=== PATIENT | male | born 1995 | race American Indian/Alaskan Native ===

== ENCOUNTER 2019-03-30 11:49 | Observation (INO) | payer OTHER ==
--- NOTE | 2019-03-30 12:12 | Emergency Department Report ---
ED Neuro Deficit HPI - General Chief Complaint: Neuro Symptoms/Deficit Stated Complaint: SYNCOPAL EPISODE Time Seen by Provider: 03/30/19 12:10 Source: patient, EMS Mode of arrival: Stretcher Limitations: Physical Limitation - History of Present Illness Initial Comments: This is a 23-year-old morbidly obese man who has presented to this hospital 2016 with similar symptoms. He is here with his family. They were at synagogue. He apparently suffered a syncopal episode while he was sitting in a chair. He remained in the chair with assistance but not responding to others for 3-4 minutes. It is reported that his breathing was normal while he had the above episode. There was no shaking movements. Last known well time was 11:30. He does have a history of seizure on Keppra. He was diagnosed as having complex migraine versus conversion disorder for similar symptoms in 2016: Hospital course: Patient is a 20 years old morbidly obese -[place] male with history of childhood seizures seizure disorder who presented to the hospital complaining of severe headache associated with left-sided weakness. He had a CT head on admiss ion with no acute findings. Brain MRI/A unable to be obtained due to patient's weight. After [address] head was obtained and CVA was ruled out. Differential diagnosis complex migraine versus conversion disorder. Patient was started on migraine medications and his discharged with home PT. Advised to follow-up also with psychiatry. Disposition: DC/TX HOME UNDER HOME HEALTH Time spent for discharge: 35 min - Discharge Diagnoses (1) Headache Status: Acute Qualifiers: Headache type: unspecified Headache chronicity pattern: acute headache Intractability: intractable Qualifier Code: (R51) Headache (2) Neurosensory deficit Status: Acute (3) Seizure disorder Status: Acute (4) Morbid obesity Status: Chronic Patient states that he does not recall the episode. I spoke to the tele- neurologist and ready. He told the tele-neurologist that he doesn't remember anything about 2016. In fact, he does not recall being transported to the emergency department per conversation with the tele-neurologist. He was speaking in a very low voice. He kept his eyes closed during my encounter mostly. He had apparently poor effort on NIH stroke score testing. He was found to have a left hemiparesis. Patient stated that he had chest pain since yesterday which he describes as dull and intermittent. He states that he had a headache since "1 minute before"I came in the room. The headache was essentially global. Patient's mother thinks this episode is related to a nerve block that he had near his left elbow for pain in his left hand or wrist. I do not know if she's been diagnosed with RSD or some sort of peripheral neuropathy. She also states that he may have some swelling in his left axillary area. She was relatively unconvinced that this episode is not likely related as the patient has now left leg weakness as well. She is also resisting the idea that this may be a similar episode compared with 2016. Reviewing the medical records, it does look remarkably similar. I have now discussed the case with the tele-neurologist twice. She recommends aspirin and admission for serial CT. She does not recommend TPA. Patient has a prior similar episode, current headache, chest pain and an alternate diagnosis which is much more likely than stroke. Therefore, TPA is not indicated. -: Sudden Location: left arm, left leg Presenting Symptoms: Present: Weak/Paralyzed One Side History of same: Yes Place: other ([facility]) Severity: severe Quality: weak Improves With: none Worsens With: none On Anticoagulants: No Context: sudden onset Associated Symptoms: chest pain - Related Data Home Medications: Previous Rx's Medication Instructions Recorded Last Taken Type Butalb/Acetamin/Caff 50-325-40 2 tab PO Q4H PRN #30 tablet 07/06/15 Unknown Rx [Fioricet 50-325-40] levETIRAcetam [Keppra TAB] 500 mg PO BID #60 tablet 07/06/15 Unknown Rx Allergies/Adverse Reactions: Allergies Allergy/AdvReac Type Severity Reaction Status Date / Time No Known Allergies Allergy Unverified 07/01/15 12:34 ED Review of Systems ROS: Stated complaint: SYNCOPAL EPISODE Other details as noted in HPI Constitutional: denies: chills, fever Eyes: denies: eye pain, eye discharge, vision change ENT: denies: ear pain, throat pain Respiratory: denies: cough, shortness of breath, wheezing Cardiovascular: chest pain. denies: palpitations Endocrine: no symptoms reported Gastrointestinal: denies: abdominal pain, nausea, diarrhea Genitourinary: denies: urgency, dysuria Musculoskeletal: denies: back pain, joint swelling, arthralgia Skin: denies: rash, lesions Neurological: headache. denies: weakness, paresthesias Psychiatric: denies: anxiety, depression Hematological/Lymphatic: denies: easy bleeding, easy bruising ED Past Medical Hx - Past Medical History Hx Headaches / Migraines: Yes Hx Seizures: Yes (couple years ago) - Social History Smoking Status: Never Smoker Substance Use Type: None - Medications Home Medications: Home Medications Medication Instructions Recorded Confirmed Last Taken Type Butalb/Acetamin/Caff 50-325-40 2 tab PO Q4H PRN #30 tablet 07/06/15 Unknown Rx [Fioricet 50-325-40] levETIRAcetam [Keppra TAB] 500 mg PO BID #60 tablet 07/06/15 Unknown Rx ED Neuro Physical Exam - General Limitations: Physical Limitation General appearance: lethargic (keeping eyes closed), obese (morbidly) Suspected Stroke: Yes (very unlikely) - Head Head exam: Present: atraumatic, normocephalic - Eye Eye exam: Present: normal appearance, PERRL, EOMI. Absent: scleral icterus - ENT ENT exam: Present: mucous membranes moist - Neck Neck exam: Present: normal inspection. Absent: tenderness, meningismus - Respiratory Respiratory exam: Present: normal lung sounds bilaterally. Absent: respiratory distress - Cardiovascular Cardiovascular Exam: Present: regular rate, normal rhythm. Absent: systolic murmur, diastolic murmur, rubs, gallop - GI/Abdominal GI/Abdominal exam: Present: soft, normal bowel sounds. Absent: distended, tenderness, guarding, rebound - Rectal Rectal exam: Present: deferred - Extremities Exam Extremities exam: Present: normal inspection - Back Exam Back exam: Present: normal inspection - Neurological Exam Neurological exam: Present: alert, oriented X3, CN II-XII intact, motor sensory deficit - NIHSS Assessment Interval: Baseline 1a. Level of Consciousness: arousable/minor stimuli 1b. LOC Questions: answers both correctly 1c. LOC Commands: performs tasks correctly 2. Best Gaze: normal 3. Visual: no visual loss 4. Facial Palsy: normal symmetrical movement 5b. Motor Arm Right: no drift 5a. Motor Arm Left: no gravity effort 6a. Motor Leg Left: no gravity effort 6b. Motor Leg Right: no drift 7. Limb Ataxia: absent 8. Sensory: normal 9. Best Language: no aphasia 10. Dysarthria: normal 11. Extinction/Inattention: no abnormality Total Score: 7 Stroke Severity: Moderate Stroke - Psychiatric Psychiatric exam: Present: normal mood, flat affect - Skin Skin exam: Present: warm, dry, intact, normal color. Absent: rash ED Course Vital Signs 03/30/19 03/30/19 03/30/19 11:59 13:00 13:14 Temperature 97.6 F Pulse Rate 96 H 74 Respiratory 18 18 Rate Blood Pressure 174/105 Blood Pressure 140/80 [Left] O2 Sat by Pulse 99 100 100 Oximetry - Reevaluation(s) Reevaluation #1: Patient with slightly more movements of his upper and lower extremity. There is seems to be an effort dependent component. He will be admitted to the hospital for further care and evaluation. He will be given aspirin as per the neurologist recommendation and admitted. 03/30/19 14:03 - Lab Data Result diagrams: 03/30/19 13:34 03/30/19 13:34 Lab Results 03/30/19 03/30/19 03/30/19 Range/Units 13:34 13:34 13:34 WBC 10.3 (4.5-11.0) K/mm3 RBC 5.20 H (3.65-5.03) M/mm3 Hgb 14.5 (11.8-15.2) gm/dl Hct 42.4 (35.5-45.6) % MCV 82 L (84-94) fl MCH 28 (28-32) pg MCHC 34 (32-34) % RDW 14.6 (13.2-15.2) % Plt Count 357 (140-440) K/mm3 Lymph % (Auto) 15.5 (13.4-35.0) % Fleming % (Auto) 8.4 H (0.0-7.3) % Eos % (Auto) 1.1 (0.0-4.3) % Baso % (Auto) 1.1 (0.0-1.8) % Lymph # 1.6 (1.2-5.4) K/mm3 Fleming # 0.9 H (0.0-0.8) K/mm3 Eos # 0.1 (0.0-0.4) K/mm3 Baso # 0.1 (0.0-0.1) K/mm3 Seg Neutrophils % 73.9 H (40.0-70.0) % Seg Neutrophils # 7.6 (1.8-7.7) K/mm3 PT 13.6 (12.2-14.9) Sec. INR 1.03 (0.87-1.13) APTT 29.1 (24.2-36.6) Sec. Thrombin Time 16.2 (15.1-19.6) Sec. D-Dimer 347.84 H (0-234) ng/mlDDU Total Bilirubin (0.1-1.2) mg/dL Direct Bilirubin (0-0.2) mg/dL AST (5-40) units/L ALT (7-56) units/L Alkaline Phosphatase (35-129) units/L Total Creatine Kinase 366 H (55-170) units/L CK-MB (CK-2) 2.7 (0.0-4.0) ng/mL CK-MB (CK-2) Rel Index 0.7 (0-4) Troponin T < 0.010 (0.00-0.029) ng/mL NT-Pro-B Natriuret Pep (0-450) pg/mL Total Protein (6.3-8.2) g/dL Albumin (3.9-5) g/dL Albumin/Globulin Ratio % Urine Color (Yellow) Urine Turbidity (Clear) Urine pH (5.0-7.0) Ur Specific Balm (1.003-1.030) Urine Protein (Negative) mg/dL Urine Glucose (UA) (Negative) mg/dL Urine Ketones (Negative) mg/dL Urine Blood (Negative) Urine Nitrite (Negative) Urine Bilirubin (Negative) Urine Urobilinogen (<2.0) mg/dL Ur Leukocyte Esterase (Negative) Urine WBC (Auto) (0.0-6.0) /HPF Urine RBC (Auto) (0.0-6.0) /HPF U Epithel Cells (Auto) (0-13.0) /HPF Urine Mucus /HPF Urine Opiates Screen Urine Methadone Screen Ur Barbiturates Screen Ur Phencyclidine Scrn Ur Amphetamines Screen U Benzodiazepines Scrn Urine Cocaine Screen U Marijuana (THC) Screen Drugs of Abuse Note 03/30/19 03/30/19 03/30/19 Range/Units 13:34 13:40 13:40 WBC (4.5-11.0) K/mm3 RBC (3.65-5.03) M/mm3 Hgb (11.8-15.2) gm/dl Hct (35.5-45.6) % MCV (84-94) fl MCH (28-32) pg MCHC (32-34) % RDW (13.2-15.2) % Plt Count (140-440) K/mm3 Lymph % (Auto) (13.4-35.0) % Fleming % (Auto) (0.0-7.3) % Eos % (Auto) (0.0-4.3) % Baso % (Auto) (0.0-1.8) % Lymph # (1.2-5.4) K/mm3 Fleming # (0.0-0.8) K/mm3 Eos # (0.0-0.4) K/mm3 Baso # (0.0-0.1) K/mm3 Seg Neutrophils % (40.0-70.0) % Seg Neutrophils # (1.8-7.7) K/mm3 PT (12.2-14.9) Sec. INR (0.87-1.13) APTT (24.2-36.6) Sec. Thrombin Time (15.1-19.6) Sec. D-Dimer (0-234) ng/mlDDU Total Bilirubin 0.50 (0.1-1.2) mg/dL Direct Bilirubin < 0.2 (0-0.2) mg/dL AST 20 (5-40) units/L ALT 30 (7-56) units/L Alkaline Phosphatase 79 (35-129) units/L Total Creatine Kinase (55-170) units/L CK-MB (CK-2) (0.0-4.0) ng/mL CK-MB (CK-2) Rel Index (0-4) Troponin T (0.00-0.029) ng/mL NT-Pro-B Natriuret Pep 26.88 (0-450) pg/mL Total Protein 7.7 (6.3-8.2) g/dL Albumin 3.6 L (3.9-5) g/dL Albumin/Globulin Ratio 0.9 % Urine Color Yellow (Yellow) Urine Turbidity Clear (Clear) Urine pH 8.0 H (5.0-7.0) Ur Specific Balm 1.011 (1.003-1.030) Urine Protein <15 mg/dl (Negative) mg/dL Urine Glucose (UA) Neg (Negative) mg/dL Urine Ketones Neg (Negative) mg/dL Urine Blood Neg (Negative) Urine Nitrite Neg (Negative) Urine Bilirubin Neg (Negative) Urine Urobilinogen < 2.0 (<2.0) mg/dL Ur Leukocyte Esterase Neg (Negative) Urine WBC (Auto) 1.0 (0.0-6.0) /HPF Urine RBC (Auto) 0.0 (0.0-6.0) /HPF U Epithel Cells (Auto) < 1.0 (0-13.0) /HPF Urine Mucus Few /HPF Urine Opiates Screen Presumptive negative Urine Methadone Screen Presumptive negative Ur Barbiturates Screen Presumptive negative Ur Phencyclidine Scrn Presumptive negative Ur Amphetamines Screen Presumptive negative U Benzodiazepines Scrn Presumptive negative Urine Cocaine Screen Presumptive negative U Marijuana (THC) Screen Presumptive negative Drugs of Abuse Note Disclamer Laboratory Results - last 24 hr 03/30/19 03/30/19 03/30/19 13:34 13:34 13:34 WBC 10.3 RBC 5.20 H Hgb 14.5 Hct 42.4 MCV 82 L MCH 28 MCHC 34 RDW 14.6 Plt Count 357 Lymph % (Auto) 15.5 Fleming % (Auto) 8.4 H Eos % (Auto) 1.1 Baso % (Auto) 1.1 Lymph # 1.6 Fleming # 0.9 H Eos # 0.1 Baso # 0.1 Seg Neutrophils % 73.9 H Seg Neutrophils # 7.6 PT 13.6 INR 1.03 APTT 29.1 Thrombin Time 16.2 D-Dimer 347.84 H Total Bilirubin Direct Bilirubin AST ALT Alkaline Phosphatase Total Creatine Kinase 366 H CK-MB (CK-2) 2.7 CK-MB (CK-2) Rel Index 0.7 Troponin T < 0.010 NT-Pro-B Natriuret Pep Total Protein Albumin Albumin/Globulin Ratio Urine Color Urine Turbidity Urine pH Ur Specific Balm Urine Protein Urine Glucose (UA) Urine Ketones Urine Blood Urine Nitrite Urine Bilirubin Urine Urobilinogen Ur Leukocyte Esterase Urine WBC (Auto) Urine RBC (Auto) U Epithel Cells (Auto) Urine Mucus Urine Opiates Screen Urine Methadone Screen Ur Barbiturates Screen Ur Phencyclidine Scrn Ur Amphetamines Screen U Benzodiazepines Scrn Urine Cocaine Screen U Marijuana (THC) Screen Drugs of Abuse Note 03/30/19 03/30/19 03/30/19 13:34 13:40 13:40 WBC RBC Hgb Hct MCV MCH MCHC RDW Plt Count Lymph % (Auto) Fleming % (Auto) Eos % (Auto) Baso % (Auto) Lymph # Fleming # Eos # Baso # Seg Neutrophils % Seg Neutrophils # PT INR APTT Thrombin Time D-Dimer Total Bilirubin 0.50 Direct Bilirubin < 0.2 AST 20 ALT 30 Alkaline Phosphatase 79 Total Creatine Kinase CK-MB (CK-2) CK-MB (CK-2) Rel Index Troponin T NT-Pro-B Natriuret Pep 26.88 Total Protein 7.7 Albumin 3.6 L Albumin/Globulin Ratio 0.9 Urine Color Yellow Urine Turbidity Clear Urine pH 8.0 H Ur Specific Balm 1.011 Urine Protein <15 mg/dl Urine Glucose (UA) Neg Urine Ketones Neg Urine Blood Neg Urine Nitrite Neg Urine Bilirubin Neg Urine Urobilinogen < 2.0 Ur Leukocyte Esterase Neg Urine WBC (Auto) 1.0 Urine RBC (Auto) 0.0 U Epithel Cells (Auto) < 1.0 Urine Mucus Few Urine Opiates Screen Presumptive negative Urine Methadone Screen Presumptive negative Ur Barbiturates Screen Presumptive negative Ur Phencyclidine Scrn Presumptive negative Ur Amphetamines Screen Presumptive negative U Benzodiazepines Scrn Presumptive negative Urine Cocaine Screen Presumptive negative U Marijuana (THC) Screen Presumptive negative Drugs of Abuse Note Disclamer - EKG Data -: EKG Interpreted by Ak EKG shows normal: sinus rhythm, axis, intervals, QRS complexes, ST-T waves Interpretation: nonspecific ST-T wave magdalena - Radiology Data Radiology results: image reviewed CT head no abnormal findings, discussed with radiologist. Chest x-ray normal mediastinum and no acute findings. Critical Care Time: Yes Critical care time in (mins) excluding proc time.: 45 Critical care attestation.: If time is entered above; I have spent that time in minutes in the direct care of this critically ill patient, excluding procedure time. ED Disposition Clinical Impression: Focal neurological deficit, Morbid obesity, Seizure disorder Headache Qualifiers: Headache type: unspecified Headache chronicity pattern: acute headache Intractability: not intractable Qualified Code(s): R51 - Headache Chest pain Qualifiers: Chest pain type: unspecified Qualified Code(s): R07.9 - Chest pain, unspecified Syncope Qualifiers: Syncope type: unspecified Qualified Code(s): R55 - Syncope and collapse Hypertension Qualifiers: Hypertension type: essential hypertension Qualified Code(s): I10 - Essential (primary) hypertension Disposition: OP ADMIT IP TO THIS HOSP Is pt being admited?: Yes Does the pt Need Aspirin: Yes Condition: Stable Instructions: Chest Pain (ED), Syncope (ED), Hypertension (ED) Time of Disposition: 14:12
--- NOTE | 2019-03-30 13:03 | Cat Scan Report ---
CT head/brain wo con INDICATION / CLINICAL INFORMATION: 23 years Male; MAIN: CODE Stroke RT SIDE WEAKNESS ASPHASIC PH#[phone] OBESE PT TABLE ISSUES ON FIRST SCAN . TECHNIQUE: Routine CT head without contrast. All CT scans at this location are performed using CT dos e reduction for ALARA by means of automated exposure control. COMPARISON: 07/05/2015 FINDINGS: BRAIN / INTRACRANIAL CONTENTS: No acute hemorrhage, mass effect, midline shift, hydrocephalus, or acu te, large territorial infarct. No chronic infarct or atrophy appreciated. No significant white matter abnormality. CRANIOCERVICAL JUNCTION: No significant abnormality. ORBITS: No significant abnormality of visualized orbits. SINUSES / MASTOIDS: No significant abnormality the visualized paranasal sinuses or mastoid air cells. ADDITIONAL FINDINGS: None. IMPRESSION: 1. No focal mass, hemorrhage, hydrocephalus, or acute, large territorial infarct. This exam was performed as part of [place] [facility] [place]. The exam was completed on 03/30/2019 11:45 AM. The exam was reviewed at 11:[address] Abraham was notified at 11:58 AM. Signer Name: Humberto Townsend MD, III Signed: 03/30/2019 12:59 PM Workstation Name: [id number]
--- NOTE | 2019-03-30 13:07 | XRay Report ---
CHEST 1 VIEW 03/30/2019 12:47 PM INDICATION / CLINICAL INFORMATION: HTN. COMPARISON: None available. FINDINGS: SUPPORT DEVICES: None. HEART / MEDIASTINUM: No significant abnormality. LUNGS / PLEURA: No significant pulmonary or pleural abnormality. No pneumothorax. ADDITIONAL FINDINGS: No significant additional findings. IMPRESSION: 1. No acute findings. Signer Name: Jose G Bal MD Signed: 03/30/2019 1:02 PM Workstation Name: [id number]
--- NOTE | 2019-03-30 13:27 | Progress Note ---
Subjective Date of service: 03/30/19 Interval history: seen for stroke alert 23 yo BM seen for AMS and speech slurring seen in CT and checjked the CT which was grossly normal advise the RN fro ED of CT remainder of the w/u pending no family here to speak to will follow up CT hard too assess because the CT table would not move since patient's weight exheeded limit of table but I am satisfied rthat images reviewed show no bleed or acute perocess Objective - Vital Sign Vital Signs - 12hr 03/30/19 03/30/19 11:59 13:14 Temperature 97.6 F Pulse Rate 96 H 74 Respiratory 18 18 Rate Blood Pressure 174/105 Blood Pressure 140/80 [Left] O2 Sat by Pulse 99 100 Oximetry
[2019-03-30] MEDS ORDERED: PROMETHAZINE 25 MG RECT SUPP PR PRN (13:32)
[2019-03-30] MEDS ORDERED: MAGNESIUM HYDROXIDE (MOM) ORAL LIQD UDC PO PRN (13:32)
[2019-03-30] MEDS ORDERED: METOCLOPRAMIDE 10 MG TAB PO PRN (13:32)
[2019-03-30] MEDS ORDERED: ACETAMINOPHEN 325 MG TAB PO PRN (13:32)
[2019-03-30] MEDS ORDERED: ONDANSETRON 4 MG/2 ML INJ IV PRN (13:32)
--- NOTE | 2019-03-30 13:32 | Progress Note ---
Subjective Date of service: 03/30/19 Interval history: radiologist and I agree as to CT reading suspect he is too large to get MRI we shall see . Objective - Vital Sign Vital Signs - 12hr 03/30/19 03/30/19 11:59 13:14 Temperature 97.6 F Pulse Rate 96 H 74 Respiratory 18 18 Rate Blood Pressure 174/105 Blood Pressure 140/80 [Left] O2 Sat by Pulse 99 100 Oximetry
--- NOTE | 2019-03-30 13:34 | History and Physical Report ---
History of Present Illness Chief complaint: I do not know was going on History of present illness: 23-year-old male with morbid obesity, lymphedema, migraine headache, seizure disorder presents to ED for evaluation. Patient is minimally cooperative with interview at the time of my exam. Patient mother is at bedside during exam and interview and provides more expansive history. As per the patient's motherthe patient has experienced left arm pain and weakness after a left arm injection for peripheral neuropathy as per the mother. Patient mother reports the patient experienced concomitant left leg weakness today while attending baptism. Patient reports that he does not recall any of the events that charge. Patient mother reports that patient "went out" for a few minutes. Several of the charge nurses subsequently came over to evaluate the patient and conducted a sternal rub which caused the patient to become more alert. EMS was notified upon arrival the patient was found to be in distress. A code stroke was called and the patient was subsequently transported to [facility]. Patient seen and evaluated in the ED. Tele-neurology consulted in ED. Neurology consulted in ED. Patient found not to be a candidate for TPA. Lab and imaging studies reviewed. Patient placed in observation status and initiated on stroke protocol. No reports of fever, chills, chest pain, palpitations, shortness of breath, trauma, productive cough, skin rash, or recent ill contacts. Prior admission on 07/01/2015 reviewed all medication listed at time of admission have been reconciled. Past History Past Medical History: migraines, seizures, other (See HPI) Past Surgical History: No surgical history, Other (Reviewed) Social history: single. denies: smoking, alcohol abuse, prescription drug abuse Family history: diabetes, hypertension Medications and Allergies Allergies Allergy/AdvReac Type Severity Reaction Status Date / Time No Known Allergies Allergy Unverified 07/01/15 12:34 Home Medications Medication Instructions Recorded Confirmed Last Taken Type No Known Home Medications [No 03/30/19 03/30/19 Unknown History Reported Home Medications] Review of Systems Constitutional: no weight loss, no weight gain, no fever, no chills Ears, nose, mouth and throat: no ear pain, no ear discharge, no decreased hearin g, no nose pain, no nasal congestion, no nasal discharge Cardiovascular: no chest pain, no orthopnea, no palpitations, no rapid/irregular heart beat, no lightheadedness, no shortness of breath Respiratory: no cough, no cough with sputum, no excessive sputum, no hemoptysis, no shortness of breath Gastrointestinal: no abdominal pain, no nausea, no diarrhea, no constipation, no hematemesis Genitourinary Male: no hematuria, no discharge, no urinary frequency, no urinary hesitancy Rectal: no pain, no incontinence, no bleeding Musculoskeletal: no neck pain, no shooting arm pain, no arm numbness/tingling, no shooting leg pain Integumentary: no rash, no pruritis, no blisters Neurological: weakness, confusion, memory loss, no tingling, no syncope, no change in speech, no change in mentation Psychiatric: no anxiety, no memory loss, no insomnia, no change in libido Endocrine: no heat intolerance, no polyphagia, no polydipsia, no polyuria Hematologic/Lymphatic: no easy bruising, no easy bleeding, no lymphadenopathy Allergic/Immunologic: no allergic rhinitis, no wheezing, no persistent infections, no anaphylaxis Exam - Constitutional Vitals: Temp Pulse Resp BP Pulse Ox 97.6 F 74 18 140/80 100 03/30/19 11:59 03/30/19 13:14 03/30/19 13:14 03/30/19 13:14 03/30/19 13:14 General appearance: Present: no acute distress, obese - EENT Eyes: Present: PERRL ENT: hearing intact, clear oral mucosa - Neck Neck: Present: supple, normal ROM - Respiratory Respiratory effort: normal Respiratory: bilateral: CTA - Cardiovascular Heart Sounds: Present: S1 & S2. Absent: rub, click - Extremities Extremities: pulses symmetrical Extremity abnormal: edema, other Peripheral Pulses: within normal limits - Abdominal General gastrointestinal: Present: soft, non-tender, non-distended, normal bowel sounds Male genitourinary: Present: normal - Integumentary Integumentary: Present: clear, warm, dry - Musculoskeletal Musculoskeletal: gait normal, strength equal bilaterally - Psychiatric Psychiatric: appropriate mood/affect, intact judgment & insight - Neurologic Neurologic: CNII-XII intact, moves all extremities Results - Labs CBC & Chem 7: 03/30/19 13:34 03/30/19 13:34 Assessment and Plan - Patient Problems (1) CVA (cerebral vascular accident) Current Visit: Yes Status: Acute Qualifiers: Laterality of affected vessel: unspecified Plan to address problem: CVA protocol, CT head, neurochecks, neurology consulted in ED, tele-neurology co nsulted, lipid panel, antiplatelet therapy, supportive care, neurochecks, (2) Morbid obesity Current Visit: Yes Status: Chronic Plan to address problem: Balanced diet, increase physical activity at discharge, outpatient bariatric surgery consult. (3) Seizure disorder Current Visit: Yes Status: Acute Plan to address problem: No active seizure at time of admission, neuro check, supportive care. Neurology consulted. (4) DVT prophylaxis Current Visit: Yes Status: Acute Plan to address problem: SCD to bilateral lower extremities while in bed, prophylactic heparin
--- NOTE | 2019-03-30 13:34 | Emergency Department Report ---
ED Neuro Deficit HPI - General Chief Complaint: Neuro Symptoms/Deficit Stated Complaint: SYNCOPAL EPISODE Time Seen by Provider: 03/30/19 12:10 Source: patient, EMS Mode of arrival: Stretcher Limitations: Physical Limitation - History of Present Illness Initial Comments: [facility] The patient was informed the neurology consult would happen via TeleHealth by way of interactive audio and visual telecommunications and consented to receiving care in this manner DATE: March 30, 2019 Impression: The patient has global weakness and lethargy confusion feels weaker on the left. Has had a prior spell that similar although he recalls none of this. The patient would be highly atypical for stroke. For this reason do not recommend acute thrombolytic therapy. Patient it sounds like is amnestic for a period of time differential includes complicated migraine, seizure, stroke much less likely given his history Recommendations: If no contraindication can start aspirin can check f/u ct head since arnel cannot get MRI brain due to his weight Without contrast at this is negative straight headache with non-vasoactive headache medications and hopefully symptoms will improve CC: Weakness syncope History of Present Illness: He said he remembers taking a shower at 8 in the am and then nothiing until arriving to the hospital. Deneis health issues, takes no meds. Had an episode of DONALDSON with left sided weakenss diagned with complicated migraine. Says he had a DONALDSON that started. In 2016 he was admitted with the same symptoms although his body habitus was too large to obtain MRI of the brain he did have a follow-up CT of the head which did not show any acute changes or evolution of stroke. The diagnosis was complicated migraine versus conversion disorder. He says hx childhood seizures but he cannot give any details regarding this Diagnostic Testing: CT head without contrast no acute changes Vital Signs:140/85 afebrile. Exam: Mental Status: Lethargic poorly attentive Speech mumbled but not slurred Cranial Nerves: Pupils: Equal round and reactive to light Extraocular movements: Intact in all cardinal gaze Ptosis: Absent Visual baitsta: Intact to finger counting Facial sensation: Intact to pin and light touch Facial movements: Intact and symmetric Motor Exam: The patient seems weak all over the right leg he can hold up at least against antigravity right upper extremity no drift, left upper extremity initially no movement but the arm is held up for him he can keep it up for 10 seconds, the left leg he will lift up off the bed Sensory Exam: Sensation intact to deep pain Coordination: No ataxia Medical Decision Making: - Extensive number of diagnosis or management options are considered above. - Extensive amount of complex data reviewed. - High risk of complication and/or morbidity or mortality are associated with differential diagnostic considerations above. - There may be uncertain outcome and increased probability of prolonged functional impairment or high probability of severe prolonged functional impairment associated with some of these differential diagnosis. Medical Data Reviewed: 1.Data reviewed include clinical labs, radiology, Medical Tests; 2.Tests results discussed w/performing or interpreting physician; 3.Obtaining/reviewing old medical records; 4.Obtaining case history from another source; 5.Independent review of image, tracing or specimen. Patient was informed the Neurology Consult would happen via telehealth (remote video) and consented to receiving care in this manner. - Related Data Home Medications: Previous Rx's Medication Instructions Recorded Last Taken Type Butalb/Acetamin/Caff 50-325-40 2 tab PO Q4H PRN #30 tablet 07/06/15 Unknown Rx [Fioricet 50-325-40] levETIRAcetam [Keppra TAB] 500 mg PO BID #60 tablet 07/06/15 Unknown Rx Allergies/Adverse Reactions: Allergies Allergy/AdvReac Type Severity Reaction Status Date / Time No Known Allergies Allergy Unverified 07/01/15 12:34 ED Review of Systems ROS: Stated complaint: SYNCOPAL EPISODE Other details as noted in HPI ED Past Medical Hx - Past Medical History Hx Headaches / Migraines: Yes Hx Seizures: Yes (couple years ago) - Social History Smoking Status: Never Smoker Substance Use Type: None - Medications Home Medications: Home Medications Medication Instructions Recorded Confirmed Last Taken Type Butalb/Acetamin/Caff 50-325-40 2 tab PO Q4H PRN #30 tablet 07/06/15 Unknown Rx [Fioricet 50-325-40] levETIRAcetam [Keppra TAB] 500 mg PO BID #60 tablet 07/06/15 Unknown Rx ED Neuro Physical Exam - General Limitations: Physical Limitation Suspected Stroke: No ED Course Vital Signs 03/30/19 03/30/19 11:59 13:14 Temperature 97.6 F Pulse Rate 96 H 74 Respiratory 18 18 Rate Blood Pressure 174/105 Blood Pressure 140/80 [Left] O2 Sat by Pulse 99 100 Oximetry Critical care attestation.: If time is entered above; I have spent that time in minutes in the direct care of this critically ill patient, excluding procedure time. ED Disposition Clinical Impression: Headache Qualifiers: Headache type: unspecified Headache chronicity pattern: acute headache Intractability: not intractable Qualified Code(s): R51 - Headache Disposition: DC-09 OP ADMIT IP TO THIS HOSP Is pt being admited?: Yes Condition: Stable
[2019-03-30 13:41] LABS: Basophils # (Auto) 0.1 K/mm3 (0.0-0.1); Basophils % (Auto) 1.1 % (0.0-1.8); Eosinophils # (Auto) 0.1 K/mm3 (0.0-0.4); Eosinophils % (Auto) 1.1 % (0.0-4.3); Hematocrit 42.4 % (35.5-45.6); Hemoglobin 14.5 gm/dl (11.8-15.2); Lymphocytes # (Auto) 1.6 K/mm3 (1.2-5.4); Lymphocytes % (Auto) 15.5 % (13.4-35.0); Mean Corpuscular HGB Conc 34 % (32-34); Mean Corpuscular Volume 82 fl (84-94); Monocytes # (Auto) 0.9 K/mm3 (0.0-0.8); Monocytes % (Auto) 8.4 % (0.0-7.3); Platelet Count 357 K/mm3 (140-440); Red Cell Distribution Width 14.6 % (13.2-15.2)
[2019-03-30 13:50] LABS: Bilirubin,Urine NEG (Negative); Blood,Urine NEG (Negative); Color,Urine Yellow (Yellow); Mucus,Urine FEW /HPF; Protein,Urine <15 mg/dL mg/dL (Negative); Urobilinogen,Urine < 2.0 mg/dL (<2.0)
[2019-03-30 13:56] LABS: Amphetamine Screen,Urine PRESUMPTIVE NEGATIVE; Benzodiazepines Screen,Urine PRESUMPTIVE NEGATIVE; Cannabinoid Screen,Urine PRESUMPTIVE NEGATIVE; Cocaine Screen,Urine PRESUMPTIVE NEGATIVE; Methadone Screen,Urine PRESUMPTIVE NEGATIVE; Opiate Screen,Urine PRESUMPTIVE NEGATIVE
[2019-03-30 13:58] LABS: INR 1.03 (0.87-1.13)
[2019-03-30 13:59] LABS: Creatine Kinase MB 2.7 ng/mL (0.0-4.0); Partial Thromboplastin Time 29.1 Sec. (24.2-36.6); Thrombin Time 16.2 Sec. (15.1-19.6)
[2019-03-30 14:00] LABS: Alanine Aminotransferase 30 units/L (7-56); Albumin 3.6 g/dL (3.9-5); Bilirubin,Direct < 0.2 mg/dL (0-0.2)
[2019-03-30 14:18] LABS: BUN/Creatinine Ratio 11; Blood Urea Nitrogen 9 mg/dL (9-20); Calcium 9.5 mg/dL (8.4-10.2); Hemolysis Index 12
[2019-03-30] MEDS: ASPIRIN 325 MG TAB PO SCH (15:42)
[2019-03-30] MEDS ORDERED: hydrALAZINE 20 MG/1 ML INJ IV ONE (17:13)
[2019-03-30] MEDS ORDERED: hydrALAZINE 20 MG/1 ML INJ ONE (17:16)
--- NOTE | 2019-03-30 17:32 | Progress Note ---
Subjective Date of service: 03/30/19 Interval history: see dictated note from stroke alert Objective - Vital Sign Vital Signs - 12hr 03/30/19 03/30/19 03/30/19 11:59 13:00 13:14 Temperature 97.6 F Pulse Rate 96 H 74 Respiratory 18 18 Rate Blood Pressure 174/105 Blood Pressure 140/80 [Left] O2 Sat by Pulse 99 100 100 Oximetry 03/30/19 03/30/19 03/30/19 14:18 16:26 17:18 Temperature Pulse Rate 74 74 90 Respiratory 22 20 Rate Blood Pressure 169/104 Blood Pressure 168/98 176/113 [Left] O2 Sat by Pulse 100 100 Oximetry - Laboratory Findings CBC and BMP: 03/30/19 13:34 03/30/19 13:34 Abnormal Lab Findings: Abnormal Labs 03/30/19 03/30/19 03/30/19 13:34 13:34 13:34 RBC 5.20 H MCV 82 L [place] % (Auto) 8.4 H [place] # 0.9 H Seg Neutrophils % 73.9 H D-Dimer 347.84 H Sodium Carbon Dioxide Total Creatine Kinase 366 H Albumin Urine pH 03/30/19 03/30/19 13:34 13:40 RBC MCV [place] % (Auto) [place] # Seg Neutrophils % D-Dimer Sodium 136 L Carbon Dioxide 21 L Total Creatine Kinase Albumin 3.6 L Urine pH 8.0 H
--- NOTE | 2019-03-30 19:49 | Consultation ---
NEUROLOGY NOTE HISTORY OF PRESENT ILLNESS: This is a 23-year-old black male that presents to the Emergency Room with new onset of right-sided weakness, difficulty with speech. He was found to be obtunded and very confused, was brought to the CT scan room on a code stroke. CT scan was done. I assessed the results, which were essentially unremarkable, although they were somewhat limited by the fact that there is some movement type artifact and there is also difficulty with moving there was no difficulty moving the table because of his weight being 370 and we had difficulty getting the parameters of the CT scan done, but I was satisfied the CT scan did not show any acute lesions. I examined the patient, he was not speaking. It was difficult to say he was aphasic or simply obtunded. He is a very large black male, weight about 380. He moves all extremities well, but had a great deal of difficulty moving from the table to the stretcher and from the table back to the stretcher, but I did not demonstrate any focal weakness. His cranial nerves appear to be intact, although his speech was very limited. He has altered mental state. I do not have much of a history since family is not available. There were no EMS to contact. I spoke for a long period with his nurse from the ED. No additional history could be provided, which was a relevant to the current assessment I am making. The patient be return back to the Emergency Room for completion of ED workup and further assessment of labs. At this point limited observations or that patient has an encephalopathic state without evidence of any meaningful large lesion in the brain, bleed, edema, stroke or any other evidence of craniocervical trauma. I also did not observe any seizures while the time the patient was in the CT scan room. I doubt that the patient is postictal. I did not see that he had bitten his tongue. There was no blood appearing around his mouth or facial area, does not have any facial abrasions or contusions that were suggestive cranial trauma. Recommend further workup. At this point, the patient was returned to the ED for more complete assessment and determination of the care algorithm. JOB# [id number] LAVELL/LINO
[2019-03-30] MEDS: HEPARIN 5,000 UNIT/1 ML VIAL SUB-Q SCH (22:04)
--- NOTE | 2019-03-31 08:17 | Progress Note ---
Subjective Date of service: 03/31/19 Interval history: see my admission note complicated case await MRI if can be done CT was benign to my review Objective - Vital Sign Vital Signs - 12hr 03/30/19 03/31/19 23:02 03:44 Temperature 98.9 F 98.0 F Pulse Rate 86 79 Respiratory 18 18 Rate Blood Pressure 155/91 138/65 O2 Sat by Pulse 96 95 Oximetry - Laboratory Findings CBC and BMP: 03/30/19 13:34 03/30/19 13:34 Abnormal Lab Findings: Abnormal Labs 03/30/19 03/30/19 03/30/19 13:34 13:34 13:34 RBC 5.20 H MCV 82 L [place] % (Auto) 8.4 H [place] # 0.9 H Seg Neutrophils % 73.9 H D-Dimer 347.84 H Sodium Carbon Dioxide POC Glucose Total Creatine Kinase 366 H Albumin Urine pH 03/30/19 03/30/19 03/30/19 13:34 13:40 21:15 RBC MCV [place] % (Auto) [place] # Seg Neutrophils % D-Dimer Sodium 136 L Carbon Dioxide 21 L POC Glucose 66 L Total Creatine Kinase Albumin 3.6 L Urine pH 8.0 H 03/31/19 01:24 RBC MCV [place] % (Auto) [place] # Seg Neutrophils % D-Dimer Sodium Carbon Dioxide POC Glucose 67 L Total Creatine Kinase Albumin Urine pH
--- NOTE | 2019-03-31 11:09 | Nuclear Medicine Report ---
NUCLEAR MEDICINE VENTILATION/PERFUSION LUNG SCAN INDICATION / CLINICAL INFORMATION: dypsnea. TECHNIQUE: 24.0 mCi of Xe-133 were given by inhalation. 5.6 mCi of Tc-99m MAA were given by IV. COMPARISON: Chest radiograph dated 03/30/2019. FINDINGS: VENTILATION: No significant ventilation defects. PERFUSION: No significant perfusion defects. ADDITIONAL FINDINGS: None. IMPRESSION: Low probability for pulmonary embolism. Signer Name: Royce Urbina Jr, MD Signed: 03/31/2019 11:04 AM Workstation Name: [id number]
[2019-03-31] MEDS: ASPIRIN 325 MG TAB PO SCH (11:42)
[2019-03-31] MEDS: HEPARIN 5,000 UNIT/1 ML VIAL SUB-Q SCH ×2 (11:42→21:06)
--- NOTE | 2019-03-31 13:16 | Vascular Lab Report ---
BILATERAL CAROTID DOPPLER ULTRASOUND INDICATION : stroke TECHNIQUE: Grayscale and color Doppler imaging performed through the neck. COMPARISON: None FINDINGS: Right: There is no significant atherosclerotic disease. Peak systolic velocity in the CCA is 81 cm/ s with end-diastolic velocity of 20 cm/s. Peak systolic velocity in the proximal ICA is 70 cm/s with end-diastolic velocity of 32 cm/s. ICA to CCA ratio is less than 2. There is antegrade flow in the E CA and the vertebral artery. Left: There is no significant atherosclerotic disease. Peak systolic velocity in the CCA is 75 cm/s w ith end-diastolic velocity of 16 cm/s. Peak systolic velocity in the proximal ICA is 68 cm/s with end -diastolic velocity of 30 cm/s. ICA to CCA ratio is less than 2. There is antegrade flow in the ECA and the vertebral artery. IMPRESSION: No hemodynamically significant stenosis by NASCET criteria. Signer Name: Royce Urbina Jr, MD Signed: 03/31/2019 1:12 PM Workstation Name: [id number]
--- NOTE | 2019-03-31 13:25 | Discharge Summary ---
Providers - Providers Date of Admission: 03/30/19 13:32 Attending physician: FATOUMATA BAUTISTA 03/30/19 13:32 Occupational Therapy Evaluate and Treat [CONS] Routine Comment: Reason For Exam: Neuro deficits Physical Therapy Evaluation and Treat [CONS] Routine Comment: Reason For Exam: Neuro deficits 03/30/19 14:03 Consult to Physician [CONS] Routine Comment: Consulting Provider: ALONZO PATRICK Physician Instructions: Reason For Exam: cva [facility] Condition: Stable - Discharge Diagnoses (1) CVA (cerebral vascular accident) Status: Acute Qualifiers: Laterality of affected vessel: unspecified (2) Morbid obesity Status: Chronic (3) Seizure disorder Status: Acute (4) DVT prophylaxis Status: Acute Exam - Constitutional Vitals: Temp Pulse Resp BP Pulse Ox 98.1 F 80 22 150/85 98 03/31/19 12:29 03/31/19 12:29 03/31/19 12:29 03/31/19 12:29 03/31/19 12:29 Plan Weight Bearing Status: Weight Bear as Tolerated Diet: low fat, low cholesterol, low salt Special Instructions: record daily weights, record daily BP diary, physical therapy, home health RN Follow up with: RIZWANA SIMMONSSAN GABRIEL MD BOBBY [Primary Care Provider] - 7 Days Prescriptions: amLODIPine 5 mg PO DAILY #30 tab Aspirin [Aspirin BABY CHEW TAB] 81 mg PO QDAY #30 tab.chew Simvastatin 20 mg PO QHS #30 tablet Other Discharge Orders: Home Health Care (Amb) Location: None Selected Physicial Therapy (Amb) Location: None Selected
[2019-03-31 14:18] LABS: Chol/HDL Ratio 3.2 %
[2019-03-31 17:57] VITALS: BP 153/78
== END 2019-03-31 21:40 | disposition home health service (06) ==
LOC: ED 11:49 → 3A 13:32
PROVIDERS: ADMIT Internal Medicine; ATTEND Internal Medicine
DX: I63.9 Cerebral infarction, unspecified (principal); G40.909 Epilepsy, unspecified, not intractable, without status epilepticus; G43.909 Migraine, unspecified, not intractable, without status migrainosus; E66.01 Morbid (severe) obesity due to excess calories; I10 Essential (primary) hypertension; R55 Syncope and collapse; R29.818 Other symptoms and signs involving the nervous system
CPT/HCPCS: 36415; 70450; 71045; 78582; 80048; 80061; 80076; 80307; 81001; 82550; 82553; 82962; 83880; 84484; 85025; 85379; 85610; 85670; 85730; 93005; 93010; 93306; 93880; 96372; 96374; 97110; 97162; 97530; 99291; A9270; A9540; A9558; G0378; J0360; J1644